=== PATIENT | male | born 1985 | race Caucasian/White ===

== ENCOUNTER 2020-01-21 01:46 | Emergency (ER) | payer OTHER ==
[2020-01-21 01:51] VITALS: BP 155/97; PULSE 99; RESP 20; TEMP 98.2
[2020-01-21] MEDS ORDERED: PROPARACAINE 0.5% OPHTH DROPS 15 ML BTL BOTH EYES STA (01:52)
[2020-01-21] MEDS ORDERED: FLUORESCEIN STRIPS 1 MG STRIP BOTH EYES ONE (01:52)
[2020-01-21] MEDS ORDERED: ERYTHROMYCIN 5 MG/GM OPHTH OINT 1 GM TUBE LEFT EYE STA (02:01)
--- NOTE | 2020-01-21 02:05 | ED ---
General Adult HPI - General Chief complaint: Eye Problems Stated complaint: Eye Problems Time Seen by Provider: 01/21/20 01:52 Source: patient, RN notes reviewed, old records reviewed Mode of arrival: ambulatory Limitations: no limitations - History of Present Illness Initial comments: 34-year-old male presents with suspected foreign body in the left eye. Patient was under his sink, drilling a hole and had wood shavings entered the left eye. He does not wear contacts. His tetanus is up-to-date. He attempted to rinse the wood shaving out at home but was unable to remove it. - Related Data Allergies Allergy/AdvReac Type Severity Reaction Status Date / Time No Known Allergies Allergy Verified 01/21/20 01:51 Review of Systems ROS Statement: Those systems with pertinent positive or pertinent negative responses have been documented in the HPI. ROS Other: All systems not noted in ROS Statement are negative. Past Medical History Past Medical History: No Reported History History of Any Multi-Drug Resistant Organisms: None Reported Past Surgical History: No Surgical Hx Reported Past Psychological History: No Psychological Hx Reported Smoking Status: Former smoker Past Alcohol Use History: Occasional Past Drug Use History: Marijuana General Exam Limitations: no limitations General appearance: alert, in no apparent distress Head exam: Present: atraumatic, normocephalic Eye exam: Present: PERRL, EOMI, conjunctival injection, other (Small amount wood pulp At the medial canthus. No fluorescein uptake, no corneal abrasion. Negative Maria De Jesus). Absent: scleral icterus, periorbital swelling, periorbital tenderness ENT exam: Present: normal exam Course Vital Signs 01/21/20 01:47 Temperature 98.2 F Pulse Rate 99 Respiratory 20 Rate Blood Pressure 155/97 O2 Sat by Pulse 97 Oximetry Medical Decision Making - Medical Decision Making 34-year-old male with wood shaving left medial canthus. No corneal abrasion. Wound fiber is removed with saline irrigation. Patient placed on erythromycin ointment. Ophthalmology follow-up. Disposition Clinical Impression: Eye foreign body Disposition: HOME SELF-CARE Condition: Good Instructions (If sedation given, give patient instructions): Eye Foreign Body (ED) Is patient prescribed a controlled substance at d/c from ED?: No Referrals: None,Stated [Primary Care Provider] - 1-2 days Isidro Brown MD [STAFF PHYSICIAN] - 1-2 days Time of Disposition: 02:05
== END 2020-01-21 02:37 | disposition home or self-care (01) ==
LOC: EC 01:46
DX: T15.92XA Foreign body on external eye, part unspecified, left eye, initial encounter (principal); Z87.891 Personal history of nicotine dependence
CPT/HCPCS: 99283